=== PATIENT | male | born 1955 | race American Indian/Alaskan Native ===

== ENCOUNTER 2020-01-07 09:39 | Outpatient (CLI) | payer MEDICARE ==
--- NOTE | 2020-01-07 10:41 | XRay Report ---
CHEST 2 VIEWS INDICATION: Cardiomegaly I51.7. COMPARISON: None FINDINGS: Support devices: None. Heart: Within normal limits. Lungs/pleura: No acute air space or interstitial disease. No pneumothorax. Additional findings: None. IMPRESSION: Unremarkable chest films. No evidence for cardiomegaly. Signer Name: Joshua Robbins Jr, MD Signed: 01/07/2020 10:37 AM Workstation Name: [id number]
[2020-01-07 11:30] LABS: Hematocrit 37.9 % (35.5-45.6); Hemoglobin 12.2 gm/dl (11.8-15.2); Mean Corpuscular HGB Conc 32 % (32-34); Mean Corpuscular Volume 82 fl (84-94); Platelet Count 237 K/mm3 (140-440); Red Blood Count 4.63 M/mm3 (3.65-5.03); Red Cell Distribution Width 24.4 % (13.2-15.2)
--- NOTE | 2020-01-07 11:36 | Vascular Lab Report ---
DUPLEX DOPPLER LOWER EXTREMITY VEINS, BILATERAL INDICATION: SWELLING IN BOTH LEGS. TECHNIQUE: Duplex doppler imaging was performed through the veins of both lower extremities using ve nous compression and other maneuvers. COMPARISON: No relevant prior imaging study available. FINDINGS: Right Common femoral vein: Negative. Right Superficial femoral vein: Negative. Right Popliteal vein: Negative. Right Calf veins: Negative. Left Common femoral vein: Negative. Left Superficial femoral vein: Negative. Left Popliteal vein: Negative. Left Calf veins: Negative. Additional findings: None.. IMPRESSION: No sonographic evidence for DVT in either lower extremity. Signer Name: Joshua Robbins Jr, MD Signed: 01/07/2020 11:32 AM Workstation Name: [id number]
[2020-01-07 11:39] LABS: ABG Base Excess 0.5 mmol/L (-2.0-3.0); ABG HCO3 26.1 mmol/L (20.0-26.0); ABG Methemoglobin 0.7 % (0.0-1.5); ABG Oxygen Saturation 66.6 % (95.0-99.0); ABG PCO2 45.7 mm Hg; ABG PH 7.374 pH Units (7.350-7.450)
[2020-01-07 11:40] LABS: INR 0.86 (0.87-1.13)
[2020-01-07 11:41] LABS: Partial Thromboplastin Time 26.5 Sec. (24.2-36.6)
[2020-01-07 11:47] LABS: ABG PO2 34.6 mm Hg (80.0-90.0)
[2020-01-07 11:53] LABS: Alanine Aminotransferase 17 units/L (7-56); Albumin 3.8 g/dL (3.9-5); BUN/Creatinine Ratio 16; Blood Urea Nitrogen 13 mg/dL (9-20); Calcium 9.3 mg/dL (8.4-10.2); Chol/HDL Ratio 3.02 %; HDL Cholesterol 38 mg/dL (40-59); Hemolysis Index 5; LDL Cholesterol,Direct 66 mg/dL (50-130)
== END 2020-01-07 09:40 | disposition home or self-care (01) ==
LOC: VAS 09:39
PROVIDERS: ATTEND Internal Medicine
DX: I11.9 Hypertensive heart disease without heart failure (principal); E11.9 Type 2 diabetes mellitus without complications; G47.33 Obstructive sleep apnea (adult) (pediatric); Z68.42 Body mass index [BMI] 45.0-49.9, adult
CPT/HCPCS: 36415; 71046; 80053; 80061; 82803; 84436; 84443; 85027; 85379; 85610; 85730; 93970

== ENCOUNTER 2020-01-08 08:14 | Emergency (ER) | payer MEDICARE ==
[2020-01-08 08:28] VITALS: BP 155/78
--- NOTE | 2020-01-08 10:32 | Emergency Department Report ---
ED General Adult HPI - General Chief complaint: Medical Clearance Stated complaint: MEDICAL CLEARANCE Time Seen by Provider: 01/08/20 10:16 Source: patient Mode of arrival: Ambulatory Limitations: No Limitations - History of Present Illness Initial comments: Patient is 64 years old male with history of obstructive sleep apnea, hypertension and diabetes. 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 Patient presented to the ER with a bandage on his right wrist most likely had an ABG yesterday. Patient currently denying any symptoms and stated that he was just doing a routine test yesterday. Patient denied any shortness of breath, chest pain, fever or chills. - Related Data Allergies Allergy/AdvReac Type Severity Reaction Status Date / Time No Known Allergies Allergy Unverified 01/08/20 08:22 ED Review of Systems ROS: Stated complaint: MEDICAL CLEARANCE Other details as noted in HPI Comment: All other systems reviewed and negative Constitutional: denies: chills, fever Respiratory: denies: cough, shortness of breath, SOB with exertion, wheezing Cardiovascular: denies: chest pain, palpitations Gastrointestinal: denies: abdominal pain, nausea, vomiting Neurological: denies: headache, weakness, numbness, paresthesias, confusion, abnormal gait ED Past Medical Hx - Past Medical History Previous Medical History?: Yes Hx Hypertension: Yes Hx Diabetes: Yes - Surgical History Past Surgical History?: No - Social History Smoking Status: Never Smoker ED Physical Exam - General Limitations: No Limitations General appearance: alert, in no apparent distress - Head Head exam: Present: atraumatic, normocephalic, normal inspection - Eye Eye exam: Present: normal appearance - ENT ENT exam: Present: normal exam, normal orophraynx, mucous membranes moist - Neck Neck exam: Present: normal inspection, full ROM. Absent: tenderness, meningismus - Respiratory Respiratory exam: Present: normal lung sounds bilaterally - Cardiovascular Cardiovascular Exam: Present: regular rate, normal rhythm, normal heart sounds - GI/Abdominal GI/Abdominal exam: Present: soft, normal bowel sounds. Absent: distended, tenderness, guarding, rebound, rigid, organomegaly, mass, bruit, pulsatile mass, hernia - Extremities Exam Extremities exam: Present: normal inspection, full ROM, normal capillary refill. Absent: tenderness, pedal edema, calf tenderness - Back Exam Back exam: Present: normal inspection, full ROM. Absent: CVA tenderness (R), CVA tenderness (L) - Neurological Exam Neurological exam: Present: alert, oriented X3, CN II-XII intact, normal gait, reflexes normal. Absent: motor sensory deficit - Psychiatric Psychiatric exam: Present: normal mood - Skin Skin exam: Present: warm, intact, normal color ED Course Vital Signs 01/08/20 08:22 Temperature 97.9 F Pulse Rate 76 Respiratory 18 Rate Blood Pressure 155/78 O2 Sat by Pulse 100 Oximetry ED Medical Decision Making - Medical Decision Making Patient is 64 years old male with history of obstructive sleep apnea, hypertension and diabetes. 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 Patient presented to the ER with a bandage on his right wrist most likely had an ABG yesterday. Patient currently denying any symptoms and stated that he was just doing a routine test yesterday. Patient denied any shortness of breath, chest pain, fever or chills. ABG within normal limits. Patient remained asymptomatic in the ER. Patient advised to follow-up with his dry chain puller as scheduled. Critical care attestation.: If time is entered above; I have spent that time in minutes in the direct care of this critically ill patient, excluding procedure time. ED Disposition Clinical Impression: Obstructive sleep apnea Disposition: DC-01 TO HOME OR SELFCARE Is pt being admited?: No Condition: Stable Instructions: Normal Exam (ED) Referrals: MICHAEL HOPPER MD [Primary Care Provider] - 3-5 Days
[2020-01-08 10:58] LABS: ABG Base Excess -2.4 mmol/L (-2.0-3.0); ABG HCO3 22.3 mmol/L (20.0-26.0); ABG Methemoglobin 0.5 % (0.0-1.5); ABG Oxygen Saturation 97.3 % (95.0-99.0); ABG PCO2 38.1 mm Hg; ABG PH 7.385 pH Units (7.350-7.450); ABG PO2 95.6 mm Hg (80.0-90.0)
== END 2020-01-08 11:10 | disposition home or self-care (01) ==
LOC: ED 08:14
DX: G47.33 Obstructive sleep apnea (adult) (pediatric) (principal); I10 Essential (primary) hypertension; E11.9 Type 2 diabetes mellitus without complications; Z79.899 Other long term (current) drug therapy
CPT/HCPCS: 82803; 99282